=== PATIENT | female | born 1985 | race Caucasian/White ===

== ENCOUNTER 2018-01-09 19:14 | Emergency (ER) | payer OTHER ==
[2018-01-09 19:33] VITALS: TEMP 98.4
[2018-01-09] MEDS ORDERED: SODIUM CHLORIDE 0.9% 500 ML 500 ML IV ONE (20:03)
[2018-01-09 20:41] LABS: Basophils % (A) 0 %; Eosinophils # (A) 0.8 k/uL (0-0.7); Eosinophils % (A) 12 %; HCT 38.6 % (34.0-46.0); HGB 12.9 gm/dL (11.4-16.0); Lymphocytes % (A) 28 %; MCHC 33.4 g/dL (31.0-37.0); MCV 83.8 fL (80.0-100.0); Mean Platelet Volume 6.2; Monocytes # (A) 0.4 k/uL (0-1.0); Monocytes % (A) 6 %; Neutrophils # (A) 3.5 k/uL (1.3-7.7); Neutrophils % (A) 51 %; Platelet Count 334 k/uL (150-450); RBC 4.61 m/uL (3.80-5.40); RDW 13.6 % (11.5-15.5); WBC 6.9 k/uL (3.8-10.6)
[2018-01-09 20:54] LABS: ALT 20 U/L (9-52); AST 19 U/L (14-36); Albumin 2.6 g/dL (3.5-5.0); Alkaline Phosphatase 40 U/L (38-126); Anion Gap 4 mmol/L; Blood Urea Nitrogen 6 mg/dL (7-17); Calcium 8.4 mg/dL (8.4-10.2); Carbon Dioxide 29 mmol/L (22-30); Chloride 102 mmol/L (98-107); Glucose 109 mg/dL (74-99); Potassium 3.6 mmol/L (3.5-5.1); Sodium 135 mmol/L (137-145); Total Bilirubin 0.3 mg/dL (0.2-1.3)
[2018-01-09 20:56] LABS: Appearance,Urine Clear (Clear); Bilirubin,Urine Negative (Negative); Blood,Urine Small (Negative); Color,Urine Yellow; Glucose,Urine (UA) Negative (Negative); Ketones,Urine Negative (Negative); Leukocyte Esterase,Urine Small (Negative); Mucus,Urine Rare /hpf; Nitrite,Urine Negative (Negative); PH, Urine 6.5 (5.0-8.0); Protein,Urine Trace (Negative); RBC,Urine <1 /hpf (0-5); Squamous Epithelial Cell,Urine 7 /hpf (0-4); Urobilinogen,Urine <2.0 mg/dL (<2.0)
--- NOTE | 2018-01-09 21:33 | XR ---
EXAMINATION TYPE: XR chest 2V DATE OF EXAM: 01/09/2018 COMPARISON: Chest x-ray November 23, 2010. HISTORY: Productive cough. TECHNIQUE: Frontal and lateral views of the chest are obtained. FINDINGS: There are new patchy multifocal opacities are present bilaterally. No pleural effusion or pneumothorax is seen bilaterally. The cardiac silhouette size is within normal limits. The osseous structures are intact. IMPRESSION: Suspect multifocal multilobar acute infiltrates.
--- NOTE | 2018-01-09 22:06 | ED ---
General Adult HPI - General Chief complaint: Vaginal Bleeding Stated complaint: swelling hands/feet, pelvic pain Source: patient, RN notes reviewed, old records reviewed Mode of arrival: ambulatory Limitations: no limitations - History of Present Illness Initial comments: 32-year-old female patient presents to ED with multiple complaints. Patient states that she was diagnosed with pneumonia approximately 1 month ago. Patient states that she has improved after antibiotic therapy, patient states that she has been having productive cough exudates. Patient denies shortness of breath chest pain. Patient has second complaint of clear vaginal discharge. Patient states that approximately 2 weeks ago she had weakly positive tests, one week ago she had negative test, wants hCG checked again today. Patient has additional complaint of mild dysuria. Patient also reports that she had mild ankle swelling, like it looked at. Patient denies history of cardiac or kidney issues. Patient denies chest pain, shortness of breath, abdominal pain, nausea vomiting diarrhea, shortness of breath. Systemic: Pt denies fatigue, myalgia, fever/chills, rash. Pt denies weakness, night sweats, weight loss. Neuro: Pt denies headache, visual disturbances, syncope or pre-syncope. HEENT: Pt denies ocular discharge or irritation, otalgia, rhinorrhea, pharyngitis or notable lymphadenopathy. Cardiopulmonary: Pt denies chest pain, SOB, heart palpitations, dyspnea on exertion. Abdominal/GI: Pt denies abdominal pain, n/v/d. : Pt denies frequency/urgency. Denies new onset urinary or bowel incontinence. MSK: Pt denies myalgia, loss of strength or function in extremities. - Related Data Previous Rx's Medication Instructions Recorded Levofloxacin [Levaquin] 750 mg PO DAILY 5 Days #5 tab 01/09/18 Allergies Allergy/AdvReac Type Severity Reaction Status Date / Time No Known Allergies Allergy Verified 01/09/18 19:33 Review of Systems ROS Statement: Those systems with pertinent positive or pertinent negative responses have been documented in the HPI. ROS Other: All systems not noted in ROS Statement are negative. General Exam - General Exam Comments Initial Comments: Constitutional: NAD, AOX3, Pt has pleasant affect. HEENT: NC/AT, trachea midline, neck supple, no lymphadenopathy. Posterior pharynx non erythematous, without exudates. External ears appear normal, without discharge. Mucous membranes moist. Eyes PERRLA, EOM intact. There is no scleral icterus. No pallor noted. Cardiopulmonary: RRR, no murmurs, rubs or gallops, no JVD noted. Mild wheezing noted in anterior and posterior beck. No peripheral edema. Abdominal exam: Abdomen soft and non-distended. Abdomen non-tender to palpation in all 4 quadrants. Bowel sounds active in LLQ. No hepatosplenomegaly. Neuro: CN II-XII grossly intact. MSK: Tibialis posterior pulse +2 bilaterally. Ankles do not appear edematous, no pitting edema, no erythema, nontender to palpation. [employer] SALES ASSESSOR: pelvic exam performed, chaperogned by chet, cervix pink, no erythema or ulcers, no abnormal findings. Swabs taken. Limitations: no limitations Course Vital Signs 01/09/18 01/09/18 19:30 22:39 Temperature 98.4 F Pulse Rate 95 78 Respiratory 18 16 Rate Blood Pressure 143/81 129/82 O2 Sat by Pulse 96 100 Oximetry Medical Decision Making - Medical Decision Making 31-year-old female patient presents to ED with multiple complaints. These included concerns over possible , cough, vaginal discharge. Each of these were evaluated individually. Physical exam displayed mild wheezing in anterior and posterior beck. HEENT, abdominal exam was within normal limits. Pelvic exam revealed non-erythematous cervix, no discharge noted. Swabs are taken and are pending. CBC/CMP was non-impressive. UA did not display UTI. HCG was negative. A chest x-ray displayed new patchy infiltrates bilaterally. Patient given 1 g Rocephin in ED, discharged with by mouth levofloxacin. Patient to return to ED if new signs or symptoms develop including worsening cough, congestion, chest pain, shortness of breath, any other new symptoms. Patient to follow-up with PCP in 1-2 days. Case discussed with Dr. Washington. - Lab Data Result diagrams: 01/09/18 20:25 01/09/18 20:25 Lab Results 01/09/18 01/09/18 01/09/18 Range/Units 20:25 20:25 20:25 WBC 6.9 (3.8-10.6) k/uL RBC 4.61 (3.80-5.40) m/uL Hgb 12.9 (11.4-16.0) gm/dL Hct 38.6 (34.0-46.0) % MCV 83.8 (80.0-100.0) fL MCH 28.0 (25.0-35.0) pg MCHC 33.4 (31.0-37.0) g/dL RDW 13.6 (11.5-15.5) % Plt Count 334 (150-450) k/uL Neutrophils % 51 % Lymphocytes % 28 % Monocytes % 6 % Eosinophils % 12 % Basophils % 0 % Neutrophils # 3.5 (1.3-7.7) k/uL Lymphocytes # 2.0 (1.0-4.8) k/uL Monocytes # 0.4 (0-1.0) k/uL Eosinophils # 0.8 H (0-0.7) k/uL Basophils # 0.0 (0-0.2) k/uL Sodium 135 L (137-145) mmol/L Potassium 3.6 (3.5-5.1) mmol/L Chloride 102 (98-107) mmol/L Carbon Dioxide 29 (22-30) mmol/L Anion Gap 4 mmol/L BUN 6 L (7-17) mg/dL Creatinine 0.52 (0.52-1.04) mg/dL Est GFR (CKD-EPI)AfAm >90 (>60 ml/min/1.73 sqM) Est GFR (CKD-EPI)NonAf >90 (>60 ml/min/1.73 sqM) Glucose 109 H (74-99) mg/dL Calcium 8.4 (8.4-10.2) mg/dL Total Bilirubin 0.3 (0.2-1.3) mg/dL AST 19 (14-36) U/L ALT 20 (9-52) U/L Alkaline Phosphatase 40 (38-126) U/L Total Protein 5.0 L (6.3-8.2) g/dL Albumin 2.6 L (3.5-5.0) g/dL Urine Color Urine Appearance (Clear) Urine pH (5.0-8.0) Ur Specific [place] (1.001-1.035) Urine Protein (Negative) Urine Glucose (UA) (Negative) Urine Ketones (Negative) Urine Blood (Negative) Urine Nitrite (Negative) Urine Bilirubin (Negative) Urine Urobilinogen (<2.0) mg/dL Ur Leukocyte Esterase (Negative) Urine RBC (0-5) /hpf Urine WBC (0-5) /hpf Ur Squamous Epith Cells (0-4) /hpf Urine Mucus (None) /hpf Urine HCG, Qual Not Detected (Not Detectd) Trichomonas Ag (Rapid) (Negative) 01/09/18 01/09/18 Range/Units 20:25 21:03 WBC (3.8-10.6) k/uL RBC (3.80-5.40) m/uL Hgb (11.4-16.0) gm/dL Hct (34.0-46.0) % MCV (80.0-100.0) fL MCH (25.0-35.0) pg MCHC (31.0-37.0) g/dL RDW (11.5-15.5) % Plt Count (150-450) k/uL Neutrophils % % Lymphocytes % % Monocytes % % Eosinophils % % Basophils % % Neutrophils # (1.3-7.7) k/uL Lymphocytes # (1.0-4.8) k/uL Monocytes # (0-1.0) k/uL Eosinophils # (0-0.7) k/uL Basophils # (0-0.2) k/uL Sodium (137-145) mmol/L Potassium (3.5-5.1) mmol/L Chloride (98-107) mmol/L Carbon Dioxide (22-30) mmol/L Anion Gap mmol/L BUN (7-17) mg/dL Creatinine (0.52-1.04) mg/dL Est GFR (CKD-EPI)AfAm (>60 ml/min/1.73 sqM) Est GFR (CKD-EPI)NonAf (>60 ml/min/1.73 sqM) Glucose (74-99) mg/dL Calcium (8.4-10.2) mg/dL Total Bilirubin (0.2-1.3) mg/dL AST (14-36) U/L ALT (9-52) U/L Alkaline Phosphatase (38-126) U/L Total Protein (6.3-8.2) g/dL Albumin (3.5-5.0) g/dL Urine Color Yellow Urine Appearance Clear (Clear) Urine pH 6.5 (5.0-8.0) Ur Specific [place] 1.020 (1.001-1.035) Urine Protein Trace H (Negative) Urine Glucose (UA) Negative (Negative) Urine Ketones Negative (Negative) Urine Blood Small H (Negative) Urine Nitrite Negative (Negative) Urine Bilirubin Negative (Negative) Urine Urobilinogen <2.0 (<2.0) mg/dL Ur Leukocyte Esterase Small H (Negative) Urine RBC <1 (0-5) /hpf Urine WBC 1 (0-5) /hpf Ur Squamous Epith Cells 7 H (0-4) /hpf Urine Mucus Rare H (None) /hpf Urine HCG, Qual (Not Detectd) Trichomonas Ag (Rapid) Negative (Negative) Disposition Clinical Impression: Pneumonia Disposition: HOME SELF-CARE Condition: Good Instructions: Pneumonia (ED) Additional Instructions: Patient to adhere to previously discussed treatment plan and will take medication(s) as directed. Patient to follow up with PCP in 1-2 days. Patient to return to ED if symptoms do not improve. Isidro Medellin [employer] in [place], [place] Address: [address] [place] [address] Prescriptions: Levofloxacin [Levaquin] 750 mg PO DAILY 5 Days #5 tab Is patient prescribed a controlled substance at d/c from ED?: No Referrals: Ghassan Kaminski MD [Primary Care Provider] - 1-2 days Time of Disposition: 22:33
[2018-01-09] MEDS ORDERED: cefTRIAXone 1,000 MG VIAL (IM USE) IM STA (22:21)
[2018-01-09 22:40] VITALS: BP 129/82; PULSE 78; RESP 16
[2018-01-11 15:49] LABS: C. trachomatis,PCR Negative (Neg,Equiv); Chlamydia trachomatis Source Urine
[2018-01-11 15:51] LABS: N. gonorrhoeae,PCR Negative (Neg,Equiv); Neisseria Source Urine
== END 2018-01-09 22:40 | disposition home or self-care (01) ==
LOC: EC 19:14
DX: J18.9 Pneumonia, unspecified organism (principal)
CPT/HCPCS: 36415; 80053; 85025; 81001; 81025; 87808; 87491; 87591; 87070; 87205; 71046; 99284; 96360; 96372; J0696

== ENCOUNTER 2019-08-22 13:49 | Emergency (ER) | payer OTHER ==
[2019-08-22 13:54] VITALS: TEMP 98.4
--- NOTE | 2019-08-22 14:15 | ED ---
Extremity Problem HPI - General Chief complaint: Extremity Problem,Nontraumatic Stated complaint: Bilateral Legs Swelling Time Seen by Provider: 08/22/19 14:02 Source: patient Mode of arrival: ambulatory Limitations: no limitations - History of Present Illness Initial comments: Patient had 34-year-old female presenting to the emergency department with a chief complaint of leg swelling. Patient reports gradual onset of bilateral lower extremity edema over the last few days. Patient also reports decreasing urine ankles. Patient denies any trauma to the region. Patient states she has been running around over the last few days to prepare for her daughter's graduation. Patient states she continues to have pain with a relation. She denies any shortness of breath or chest pain. Patient states she is not diabetic nor has any cardiac related issues. Patient also reports a lesion on the right lower extremity with occasional clear discharge. Patient denies any night sweats or chills. - Related Data Home Medications Medication Instructions Recorded Confirmed Buprenorphine HCl/Naloxone HCl 0.5 film SL DAILY@1300 08/22/19 08/22/19 [Suboxone 8 mg-2 mg Sl Film] Buprenorphine HCl/Naloxone HCl 1 film SL DAILY 08/22/19 08/22/19 [Suboxone 8 mg-2 mg Sl Film] Loratadine 10 mg PO DAILY 08/22/19 08/22/19 OXcarbazepine [Trileptal] 600 mg PO BID 08/22/19 08/22/19 Sertraline [Zoloft] 100 mg PO BID 08/22/19 08/22/19 clonazePAM 0.5 mg PO BID 08/22/19 08/22/19 Allergies Allergy/AdvReac Type Severity Reaction Status Date / Time No Known Allergies Allergy Verified 08/22/19 15:22 Review of Systems ROS Statement: Those systems with pertinent positive or pertinent negative responses have been documented in the HPI. ROS Other: All systems not noted in ROS Statement are negative. Past Medical History Past Medical History: No Reported History History of Any Multi-Drug Resistant Organisms: None Reported Past Surgical History: Section Smoking Status: Current every day smoker Past Alcohol Use History: None Reported Past Drug Use History: Marijuana General Exam Limitations: no limitations General appearance: alert, in no apparent distress Head exam: Present: atraumatic, normocephalic, normal inspection Eye exam: Present: normal appearance, PERRL, EOMI Pupils: Present: normal accommodation ENT exam: Present: normal exam, normal oropharynx, mucous membranes moist, TM's normal bilaterally, normal external ear exam Neck exam: Present: normal inspection, full ROM. Absent: tenderness Respiratory exam: Present: normal lung sounds bilaterally. Absent: respiratory distress, wheezes Cardiovascular Exam: Present: regular rate, normal rhythm, normal heart sounds Extremities exam: Present: full ROM, tenderness (Tenderness near the high ankle region.), normal capillary refill, pedal edema (+2 pitting edema), joint swelling (Bilateral ankles), other (+2 dorsalis pedis and posterior tibialis bilaterally.). Absent: normal inspection (Bilateral lower extremity edema with no cellulitic skin changes in the right lower leg.), calf tenderness Course Vital Signs 08/22/19 08/22/19 08/22/19 13:51 14:12 14:44 Temperature 98.4 F Pulse Rate 73 89 73 Respiratory 16 18 Rate Blood Pressure 127/82 132/85 O2 Sat by Pulse 98 97 Oximetry 08/22/19 08/22/19 08/22/19 15:00 16:00 16:14 Temperature Pulse Rate 76 77 73 Respiratory 16 16 18 Rate Blood Pressure 132/85 132/85 128/88 O2 Sat by Pulse 97 97 97 Oximetry 08/22/19 08/22/19 08/22/19 17:00 18:33 18:36 Temperature 98.4 F Pulse Rate 78 90 90 Respiratory 16 18 18 Rate Blood Pressure 123/77 113/72 113/72 O2 Sat by Pulse 97 96 96 Oximetry Medical Decision Making - Medical Decision Making Patient is a 34-year-old female presenting to emergency Department with a chief complaint of leg swelling. On exam no signs of overlying cellulitic skin changes. Patient was also evaluated by . he recommended additional testing. Chest x-ray is unremarkable, bilateral lower extremity Doppler ultrasound is unremarkable for DVT. She does have right popliteal cyst. CT abdomen and pelvis shows mild patchy infiltrates in the right lateral lung base. Patient has slight decrease in renal function with BUN of 6 and creatinine of 0.49. Patient advised to follow with . Return parameters were thoroughly discussed the patient was understanding and agreeable. Case discussed with physician. - Lab Data Result diagrams: 08/22/19 14:44 08/22/19 14:44 Lab Results 0708/22/19 08/22/19 Range/Units 14:44 14:44 14:44 WBC 6.4 (3.8-10.6) k/uL RBC 4.74 (3.80-5.40) m/uL Hgb 13.4 (11.4-16.0) gm/dL Hct 41.1 (34.0-46.0) % MCV 86.8 (80.0-100.0) fL MCH 28.2 (25.0-35.0) pg MCHC 32.5 (31.0-37.0) g/dL RDW 12.6 (11.5-15.5) % Plt Count 269 (150-450) k/uL Neutrophils % 61 % Lymphocytes % 22 % Monocytes % 8 % Eosinophils % 6 % Basophils % 0 % Neutrophils # 3.9 (1.3-7.7) k/uL Lymphocytes # 1.4 (1.0-4.8) k/uL Monocytes # 0.5 (0-1.0) k/uL Eosinophils # 0.4 (0-0.7) k/uL Basophils # 0.0 (0-0.2) k/uL Sodium 130 L (137-145) mmol/L Potassium 4.2 (3.5-5.1) mmol/L Chloride 95 L (98-107) mmol/L Carbon Dioxide 29 (22-30) mmol/L Anion Gap 6 mmol/L BUN 6 L (7-17) mg/dL Creatinine 0.49 L (0.52-1.04) mg/dL Est GFR (CKD-EPI)AfAm >90 (>60 ml/min/1.73 sqM) Est GFR (CKD-EPI)NonAf >90 (>60 ml/min/1.73 sqM) Glucose 106 H (74-99) mg/dL Calcium 8.8 (8.4-10.2) mg/dL Total Bilirubin 0.5 (0.2-1.3) mg/dL AST 29 (14-36) U/L ALT 11 (4-34) U/L Alkaline Phosphatase 44 (38-126) U/L NT-Pro-B Natriuret Pep 25 pg/mL Total Protein 6.1 L (6.3-8.2) g/dL Albumin 3.6 (3.5-5.0) g/dL Urine Color Urine Appearance (Clear) Urine pH (5.0-8.0) Ur Specific [place] (1.001-1.035) Urine Protein (Negative) Urine Glucose (UA) (Negative) Urine Ketones (Negative) Urine Blood (Negative) Urine Nitrite (Negative) Urine Bilirubin (Negative) Urine Urobilinogen (<2.0) mg/dL Ur Leukocyte Esterase (Negative) Urine HCG, Qual (Not Detectd) 08/22/19 08/22/19 Range/Units 16:14 16:14 WBC (3.8-10.6) k/uL RBC (3.80-5.40) m/uL Hgb (11.4-16.0) gm/dL Hct (34.0-46.0) % MCV (80.0-100.0) fL MCH (25.0-35.0) pg MCHC (31.0-37.0) g/dL RDW (11.5-15.5) % Plt Count (150-450) k/uL Neutrophils % % Lymphocytes % % Monocytes % % Eosinophils % % Basophils % % Neutrophils # (1.3-7.7) k/uL Lymphocytes # (1.0-4.8) k/uL Monocytes # (0-1.0) k/uL Eosinophils # (0-0.7) k/uL Basophils # (0-0.2) k/uL Sodium (137-145) mmol/L Potassium (3.5-5.1) mmol/L Chloride (98-107) mmol/L Carbon Dioxide (22-30) mmol/L Anion Gap mmol/L BUN (7-17) mg/dL Creatinine (0.52-1.04) mg/dL Est GFR (CKD-EPI)AfAm (>60 ml/min/1.73 sqM) Est GFR (CKD-EPI)NonAf (>60 ml/min/1.73 sqM) Glucose (74-99) mg/dL Calcium (8.4-10.2) mg/dL Total Bilirubin (0.2-1.3) mg/dL AST (14-36) U/L ALT (4-34) U/L Alkaline Phosphatase (38-126) U/L NT-Pro-B Natriuret Pep pg/mL Total Protein (6.3-8.2) g/dL Albumin (3.5-5.0) g/dL Urine Color Light Yellow Urine Appearance Clear (Clear) Urine pH 7.0 (5.0-8.0) Ur Specific [place] 1.002 (1.001-1.035) Urine Protein Negative (Negative) Urine Glucose (UA) Negative (Negative) Urine Ketones Negative (Negative) Urine Blood Negative (Negative) Urine Nitrite Negative (Negative) Urine Bilirubin Negative (Negative) Urine Urobilinogen <2.0 (<2.0) mg/dL Ur Leukocyte Esterase Negative (Negative) Urine HCG, Qual Not Detected (Not Detectd) - EKG Data EKG Comments: Sinus rhythm, no ST or T-wave changes. Ventricular rate 73, MO 142, QRS 96, QTC 434. Disposition Clinical Impression: Bilateral lower extremity edema Disposition: HOME SELF-CARE Condition: Stable Instructions (If sedation given, give patient instructions): Leg Edema (ED) Additional Instructions: elevate your legs and rest. follow up with your PCP. return to the Emergency department is symptoms worsen. Follow-up with pulmonology. Is patient prescribed a controlled substance at d/c from ED?: No Referrals: None,Stated [Primary Care Provider] - 1-2 days Beulah Olivo MD [STAFF PHYSICIAN] - 1-2 days Time of Disposition: 15:48
--- NOTE | 2019-08-22 14:41 | XR ---
EXAMINATION TYPE: XR chest 2V DATE OF EXAM: 08/22/2019 COMPARISON: 01/09/2018 HISTORY: Chest pain TECHNIQUE: Frontal and lateral views of the chest are obtained. FINDINGS: There is no focal air space opacity. No evidence for pneumothorax. No pleural effusion. The cardiac silhouette size is within normal limits. The osseous structures are grossly intact. IMPRESSION: 1. No acute cardiopulmonary process.
[2019-08-22 14:55] LABS: Basophils % (A) 0 %; Eosinophils # (A) 0.4 k/uL (0-0.7); Eosinophils % (A) 6 %; HCT 41.1 % (34.0-46.0); HGB 13.4 gm/dL (11.4-16.0); Lymphocytes # (A) 1.4 k/uL (1.0-4.8); Lymphocytes % (A) 22 %; MCH 28.2 pg (25.0-35.0); MCHC 32.5 g/dL (31.0-37.0); MCV 86.8 fL (80.0-100.0); Mean Platelet Volume 7.2; Monocytes # (A) 0.5 k/uL (0-1.0); Monocytes % (A) 8 %; Neutrophils # (A) 3.9 k/uL (1.3-7.7); Neutrophils % (A) 61 %; Platelet Count 269 k/uL (150-450); RBC 4.74 m/uL (3.80-5.40); RDW 12.6 % (11.5-15.5); WBC 6.4 k/uL (3.8-10.6)
[2019-08-22 15:02] LABS: ALT 11 U/L (4-34); AST 29 U/L (14-36); African American GFR (CKD) >90 (>60 ml/min/1.73 sqM); Albumin 3.6 g/dL (3.5-5.0); Alkaline Phosphatase 44 U/L (38-126); Anion Gap 6 mmol/L; Blood Urea Nitrogen 6 mg/dL (7-17); Calcium 8.8 mg/dL (8.4-10.2); Carbon Dioxide 29 mmol/L (22-30); Chloride 95 mmol/L (98-107); Glucose 106 mg/dL (74-99); Non-African American GFR(CKD) >90 (>60 ml/min/1.73 sqM); Sodium 130 mmol/L (137-145); Total Bilirubin 0.5 mg/dL (0.2-1.3); Total Protein 6.1 g/dL (6.3-8.2)
[2019-08-22 15:11] LABS: Potassium 4.2 mmol/L (3.5-5.1)
[2019-08-22 16:23] LABS: Appearance,Urine Clear (Clear); Bilirubin,Urine Negative (Negative); Blood,Urine Negative (Negative); Color,Urine Light Yellow; Glucose,Urine (UA) Negative (Negative); Ketones,Urine Negative (Negative); Leukocyte Esterase,Urine Negative (Negative); Nitrite,Urine Negative (Negative); Protein,Urine Negative (Negative); Specific Gravity,Urine 1.002 (1.001-1.035); Urobilinogen,Urine <2.0 mg/dL (<2.0)
--- NOTE | 2019-08-22 17:14 | US ---
EXAMINATION TYPE: US venous doppler duplex LE DATE OF EXAM: 08/22/2019 5:02 PM COMPARISON: NONE CLINICAL HISTORY: lower extremity edema. SIDE PERFORMED: Bilateral TECHNIQUE: The lower extremity deep venous system is examined utilizing real time linear array sonog seda with graded compression, doppler sonography and color-flow sonography. VESSELS IMAGED: External Iliac Vein (EIV) Common Femoral Vein Deep Femoral Vein Greater Saphenous Vein * Femoral Vein Popliteal Vein Small Saphenous Vein * Proximal Calf Veins (* superficial vessels) Patient of large body habitus. Right Leg: Negative for DVT Left Leg: Negative for DVT Within the right popliteal fossa there is a heterogenous 7.2 x 1.5 cm complex collection could be pop liteal cyst. IMPRESSION: 1. Bilateral lower extremity ultrasound negative for deep venous thrombosis. 2. Right popliteal cyst
--- NOTE | 2019-08-22 17:52 | CT ---
EXAMINATION TYPE: CT abdomen pelvis w con DATE OF EXAM: 08/22/2019 COMPARISON: None INDICATION: Bilateral leg edema DLP: 1306.4 mGycm, Automated exposure control for dose reduction was used. CONTRAST: 100 mL of Isovue 300. Study performed without Oral Contrast TECHNIQUE: Axial images were obtained from above the diaphragm to the pubic rami in the axial plane a t 5 mm thick sections. Reconstructed images are reviewed on the computer in the coronal plane. FINDINGS: Limited CT sections are obtained the lung bases. There is a patchy infiltrate at the right base. Ate lectasis is within the differential. An infiltrate such as pneumonia could be considered as etiologie s are not excluded.. CT ABDOMEN: Liver: Normal Spleen: Normal Pancreas: Normal Adrenal glands: The adrenal glands are normal. Gallbladder: Normal Kidneys: No masses are evident. No hydronephrosis is present. There is a cyst at the superior pole lateral aspect left kidney Delayed images were obtained through the kidneys, which remain unremarkab le. Aorta: Normal Inferior vena cava: Normal. CT PELVIS: Loops of bowel within the abdomen and pelvis are normal. Study is without oral contrast limiting bowel evaluation. Appendix: Not identified. No suspicious inflammatory changes or dilated tubular structures are eviden t Urinary bladder: Normal. Genitourinary structures: Osseous structures: Uterus and adnexal regions appear unremarkable IMPRESSIONS: 1. Mild patchy infiltrate right lateral lung base most likely atelectasis. Other etiologies are not excluded 2. No suspicious masses to account for leg swelling
[2019-08-22] MEDS ORDERED: FUROSEMIDE 10 MG/ML 2 ML VIAL IV STA (18:24)
[2019-08-22 18:35] VITALS: BP 113/72; PULSE 90; RESP 18
== END 2019-08-22 18:47 | disposition home or self-care (01) ==
LOC: EC 13:49
DX: R60.0 Localized edema (principal); M71.21 Synovial cyst of popliteal space [Baker], right knee; R91.8 Other nonspecific abnormal finding of lung field; R79.89 Other specified abnormal findings of blood chemistry; M79.605 Pain in left leg; M79.604 Pain in right leg; F17.200 Nicotine dependence, unspecified, uncomplicated
CPT/HCPCS: 36415; 93005; 83880; 80053; 85025; 81003; 81025; 71046; 93970; 74177; 96374; 99284; J1940; Q9967

== ENCOUNTER → 2019-10-28 | Outpatient (CLI) | payer OTHER | END | disposition home or self-care (01) | LOC: LABWHC1 09:37 | PROVIDERS: ATTEND Emergency Medicine | DX: Z20.828 Contact with and (suspected) exposure to other viral communicable diseases (principal) | CPT/HCPCS: U0003; C9803 ==

== ENCOUNTER 2019-11-20 12:22 | Observation (INO) | payer OTHER ==
[2019-11-20] MEDS ORDERED: methylPREDNISolone SOD SUCCI 125 MG/2 ML VIAL IV STA (12:34)
[2019-11-20] MEDS ORDERED: ALBUTEROL NEBULIZED (CONC) 5 MG, SODIUM CHLORIDE 0.9% NEBULIZ 3 ML INHALATION STA ×2 (12:34)
[2019-11-20] MEDS ORDERED: IPRATROPIUM-ALBUTEROL 3 ML NEB INHALATION STA (13:35)
--- NOTE | 2019-11-20 14:04 | XR ---
EXAMINATION TYPE: XR chest 2V DATE OF EXAM: 11/20/2019 COMPARISON: 08/22/2019 INDICATION: Cough weakness TECHNIQUE: Frontal and lateral views of the chest are obtained. FINDINGS: The heart size is normal. The pulmonary vasculature is normal. The lungs are clear. IMPRESSION: 1. No acute pulmonary process.
[2019-11-20 14:21] LABS: Basophils # (A) 0.1 k/uL (0-0.2); Basophils % (A) 1 %; Eosinophils # (A) 0.3 k/uL (0-0.7); Eosinophils % (A) 3 %; HCT 47.7 % (34.0-46.0); HGB 15.3 gm/dL (11.4-16.0); Lymphocytes # (A) 1.2 k/uL (1.0-4.8); Lymphocytes % (A) 13 %; MCH 26.7 pg (25.0-35.0); MCV 83.4 fL (80.0-100.0); Monocytes # (A) 0.7 k/uL (0-1.0); Monocytes % (A) 7 %; Neutrophils # (A) 6.4 k/uL (1.3-7.7); Neutrophils % (A) 73 %; Platelet Count 279 k/uL (150-450); RBC 5.72 m/uL (3.80-5.40); RDW 13.3 % (11.5-15.5); WBC 8.7 k/uL (3.8-10.6)
[2019-11-20] MEDS ORDERED: NALOXONE 0.4 MG/ML 1 ML VIAL IV PRN (14:30)
[2019-11-20 14:31] LABS: ALT 9 U/L (4-34); AST 21 U/L (14-36); African American GFR (CKD) >90 (>60 ml/min/1.73 sqM); Albumin 4.1 g/dL (3.5-5.0); Alkaline Phosphatase 56 U/L (38-126); Anion Gap 7 mmol/L; Blood Urea Nitrogen 14 mg/dL (7-17); Calcium 9.4 mg/dL (8.4-10.2); Carbon Dioxide 29 mmol/L (22-30); Chloride 101 mmol/L (98-107); Glucose 115 mg/dL (74-99); Non-African American GFR(CKD) >90 (>60 ml/min/1.73 sqM); Potassium 4.1 mmol/L (3.5-5.1); Sodium 137 mmol/L (137-145); Total Bilirubin 0.6 mg/dL (0.2-1.3); Total Protein 7.3 g/dL (6.3-8.2)
[2019-11-20] MEDS ORDERED: MAGNESIUM SULFATE-D5W PMX 1 GM in DEXTROSE/WATER 1 100ML.BAG IVPB ONE (14:32)
[2019-11-20 14:35] LABS: Appearance,Urine Clear (Clear); Bilirubin,Urine Negative (Negative); Blood,Urine Negative (Negative); Color,Urine Yellow; Glucose,Urine (UA) Negative (Negative); Ketones,Urine 3+ (Negative); Leukocyte Esterase,Urine Moderate (Negative); Mucus,Urine Few /hpf; Nitrite,Urine Negative (Negative); PH, Urine 6.5 (5.0-8.0); Protein,Urine Negative (Negative); RBC,Urine 1 /hpf (0-5); Specific Gravity,Urine 1.023 (1.001-1.035); Squamous Epithelial Cell,Urine 4 /hpf (0-4); WBC,Urine 3 /hpf (0-5)
[2019-11-20] MEDS ORDERED: IPRATROPIUM-ALBUTEROL 3 ML NEB INHALATION PRN (14:35)
--- NOTE | 2019-11-20 14:35 | ED ---
URI HPI - General Chief Complaint: Upper Respiratory Infection Stated Complaint: cough, congestion, SOB Time Seen by Provider: 11/20/19 12:27 Source: patient Mode of arrival: ambulatory Limitations: no limitations - History of Present Illness Initial Comments: 34-year-old female presenting for cough congestion shortness of breath. Patient states she's had wheezing and shortness of breath the past 2-3 days she states she's had a cough or sputum production she states it is green. Patient states she had asthma as a kid and when she gets sick as a dull and occasionally flares up. Patient believes she is having an asthma exacerbation she states she has not. Albuterol inhaler at this time. Patient denies any history of immune compromise. She appears well and nontoxic she is slightly tachypneic on arrival with a lower oxygen saturation than normal. Patient denies any leg swelling chest pain. Deep inspiration history DVT to pulmonary embolism. She denies IVDU or additional complaints or concerns. - Related Data Home Medications Medication Instructions Recorded Confirmed No Known Home Medications 11/20/19 11/20/19 Allergies Allergy/AdvReac Type Severity Reaction Status Date / Time No Known Allergies Allergy Verified 11/20/19 13:39 Review of Systems ROS Statement: Those systems with pertinent positive or pertinent negative responses have been documented in the HPI. ROS Other: All systems not noted in ROS Statement are negative. Past Medical History Past Medical History: No Reported History History of Any Multi-Drug Resistant Organisms: None Reported Past Surgical History: Section Smoking Status: Never smoker Past Alcohol Use History: None Reported Past Drug Use History: Marijuana General Exam - General Exam Comments Initial Comments: General: The patient is awake and alert, can speak complete sentences Eye: +3 mm pupils are equal, round and reactive to light, extra-ocular movements are intact. No nystagmus. There is normal conjunctiva bilaterally. No signs of icterus. Ears, nose, mouth and throat: There are moist mucous membranes and no oral lesions. Neck: The neck is supple, there is no tenderness or JVD. Cardiovascular: There is a regular rate and rhythm. No murmur, rub or gallop is appreciated. Respiratory: Respirations are mildly-labored with no retractions, or abdominal breathing, breath sounds are equal. INspiratory and expiratory wheeze throughout lung beck. No stridor, rales, or rhonchi. Gastrointestinal: Soft, non-distended, non-tender abdomen without masses or organomegaly noted. There is no rebound or guarding present Musculoskeletal: Normal ROM, no tenderness. Strength 5/5. Sensation intact. Pulses equal bilaterally 2+. Neurological: A&O x 3. CN II-XII intact grossly, There are no obvious motor or sensory deficits. Coordination appears grossly intact. Speech is normal. Skin: Skin is warm and dry and no rashes or lesions are noted. Psychiatric: Cooperative, appropriate mood & affect, normal judgment. Limitations: no limitations Course Vital Signs 11/20/19 11/20/19 11/20/19 12:24 13:08 13:20 Temperature 99.4 F Pulse Rate 109 H 100 100 Respiratory 24 Rate Blood Pressure 149/90 O2 Sat by Pulse 93 L Oximetry 11/20/19 11/20/19 14:12 14:24 Temperature Pulse Rate 96 96 Respiratory Rate Blood Pressure O2 Sat by Pulse Oximetry Medical Decision Making - Medical Decision Making Labs stable. CXR clear .obvious broncospams on exam. hx of asthma. after 5mg albuterol (double treatment) and a duoneb patient has very minimal improvement of lung sounds, she does however appears less tachypnea. Patient was given Solu-Medrol and will be admitted for further treatments. IV magnesium, and monitoring. Patient is agreeable to care plan as well as admission. There is no spotting suggestive of infection on chest x-ray telemetry studies - Lab Data Result diagrams: 11/20/19 13:16 11/20/19 13:16 Lab Results 11/20/19 11/20/19 11/20/19 Range/Units 13:16 13:16 13:16 WBC 8.7 (3.8-10.6) k/uL RBC 5.72 H (3.80-5.40) m/uL Hgb 15.3 (11.4-16.0) gm/dL Hct 47.7 H (34.0-46.0) % MCV 83.4 (80.0-100.0) fL MCH 26.7 (25.0-35.0) pg MCHC 32.0 (31.0-37.0) g/dL RDW 13.3 (11.5-15.5) % Plt Count 279 (150-450) k/uL Neutrophils % 73 % Lymphocytes % 13 % Monocytes % 7 % Eosinophils % 3 % Basophils % 1 % Neutrophils # 6.4 (1.3-7.7) k/uL Lymphocytes # 1.2 (1.0-4.8) k/uL Monocytes # 0.7 (0-1.0) k/uL Eosinophils # 0.3 (0-0.7) k/uL Basophils # 0.1 (0-0.2) k/uL Sodium 137 (137-145) mmol/L Potassium 4.1 (3.5-5.1) mmol/L Chloride 101 (98-107) mmol/L Carbon Dioxide 29 (22-30) mmol/L Anion Gap 7 mmol/L BUN 14 (7-17) mg/dL Creatinine 0.59 (0.52-1.04) mg/dL Est GFR (CKD-EPI)AfAm >90 (>60 ml/min/1.73 sqM) Est GFR (CKD-EPI)NonAf >90 (>60 ml/min/1.73 sqM) Glucose 115 H (74-99) mg/dL Plasma Lactic Acid Willie 1.8 (0.7-2.0) mmol/L Calcium 9.4 (8.4-10.2) mg/dL Total Bilirubin 0.6 (0.2-1.3) mg/dL AST 21 (14-36) U/L ALT 9 (4-34) U/L Alkaline Phosphatase 56 (38-126) U/L Total Protein 7.3 (6.3-8.2) g/dL Albumin 4.1 (3.5-5.0) g/dL Disposition Clinical Impression: Asthma exacerbation Disposition: ADMITTED IP TO THIS [facility] Condition: Stable Is patient prescribed a controlled substance at d/c from ED?: No Referrals: None,Stated [Primary Care Provider] - 1-2 days Time of Disposition: 14:35 Decision to Admit Reason: Admit from EC Decision Date: 11/20/19 Decision Time: 14:35
[2019-11-20] MEDS: IPRATROPIUM-ALBUTEROL 3 ML NEB INHALATION SCH ×2 (15:55→19:37)
[2019-11-20] MEDS ORDERED: TEMAZEPAM 15 MG CAP PO PRN (16:01)
[2019-11-20] MEDS: BUDESONIDE 1 MG/2 ML NEBU INHALATION SCH ×2 (16:04→19:37)
[2019-11-20] MEDS: FORMOTEROL FUMARATE 20 MCG/2 ML NEBU INHALATION SCH ×2 (16:04→19:37)
[2019-11-20] MEDS: methylPREDNISolone SOD SUCCI 125 MG/2 ML VIAL IV SCH ×3 (16:29→23:47)
[2019-11-20] MEDS: ALPRAZolam 0.25 MG TAB PO PRN ×2 (16:37→21:03)
[2019-11-20] MEDS ORDERED: MORPHINE SULFATE 2 MG/ML SYRINGE IVP PRN (16:51)
--- NOTE | 2019-11-20 17:00 | HP ---
HISTORY AND PHYSICAL DATE OF SERVICE: 11/20/2019 CHIEF COMPLAINTS: Shortness of breath. HISTORY OF PRESENT ILLNESS: This 34-year-old woman with a past medical history of multiple medical problems including history of asthma, history of section, history of THC being followed by Dr. Schneider in the outpatient setting, was complaining of increased shortness of breath. The patient was apparently on Suboxone, but apparently the patient took fentanyl and got kicked out of the program by Dr. Schneider. The patient is not taking inhalers at this time. The patient had asthma since the age of 3. Currently patient has extreme wheezing and shortness of breath and difficulty breathing. The patient came to [facility] and was admitted for further evaluation and treatment. There is no history of fever, rigors, chills. No history of headache, loss of consciousness, seizures. Initial evaluation showed WBC 8.7. UA was noted. The chest x- ray which was reviewed personally by me during the during the admission showed no acute pulmonary process. There is no history of fever, rigors, chills. No headache, loss of consciousness, seizures. PAST MEDICAL HISTORY: History of section. History of THC. MEDICATIONS: Home medications are none. ALLERGIES: None. FAMILY HISTORY: No history of heart disease or strokes in the family. SOCIAL HISTORY: History of THC. No history of smoking. REVIEW OF SYSTEMS: ENT: No diminished vision or hearing. CARDIOVASCULAR: No angina. RESPIRATORY: As mentioned earlier. GI: As mentioned earlier. : No dysuria. NERVOUS SYSTEM: No numbness or weakness. ALLERGY/IMMUNOLOGY: No asthma or hayfever. MUSCULOSKELETAL: As mentioned earlier. HEMATOLOGY: No history of anemia. ENDOCRINE: No history of diabetes or hypothyroidism. CONSTITUTIONAL: As mentioned earlier. DERMATOLOGY: Negative. RHEUMATOLOGY: Negative. PSYCHIATRY: As mentioned earlier. PHYSICAL EXAMINATION: GENERAL: Patient is alert and oriented times three. VITAL SIGNS: Pulse 112, blood pressure 130/88, respirations 19, temperature 98.2, pulse ox 92% on 2 liters. HEENT: Conjunctivae normal. Oral mucosa is moist. NECK: No jugular venous distention. No carotid bruits. No lymph node enlargement. RESPIRATORY: Breath sounds diminished at the bases. Bilateral scattered rhonchi and crackles. Expiratory wheezing also present. HEART: S1 and S2, muffled. ABDOMEN: Soft, no tenderness. No masses palpable. EXTREMITIES: No edema, no swelling. NERVOUS: Higher functions as mentioned earlier. Moves all four limbs. No focal motor or sensory deficits. LYMPHATICS: No lymph nodes palpable in the neck or axillae. SKIN: No rashes. JOINTS: No active deforming arthropathy. LABS: At this time shows WBC 8.2, hemoglobin 15.2, glucose 115. ASSESSMENT: 1. Acute bronchial asthma acute exacerbation with acute purulent tracheobronchitis. 2. Chronic intermittent Bronchial asthma at baseline. 4. Increased random blood sugar. 5. History of THC. 6. History of section. 7. FULL CODE. RECOMMENDATIONS AND DISCUSSION: This is a 34-year-old woman who presented with multiple complex medical issues, we will monitor the patient closely. Continue the current medications and continue with symptomatic treatment. Will initiate broad-spectrum antibiotics, steroids, bronchodilators, pulmonary consultation. Prognosis guarded because of multiple complex medical issues. Further recommendations to follow. MMODL / IJN: [id number] / MTDD
[2019-11-20 17:23] LABS: Glucose,Whole Blood 163 mg/dL (75-99)
[2019-11-20] MEDS: INSULIN ASPART (NovoLOG) 100 UNIT/ML VIAL SQ SCH ×2 (17:33→21:04)
[2019-11-20] MEDS: AZITHROMYCIN 500 MG TAB PO SCH (17:33)
[2019-11-20] MEDS: HYDROcodone/APAP 5-325MG 1 EACH TAB PO PRN ×2 (17:33→23:46)
[2019-11-20 20:59] LABS: Glucose,Whole Blood 192 mg/dL (75-99)
[2019-11-20] MEDS: HEPARIN SODIUM,PORCINE 5,000 UNIT/ML 1 ML VIAL SQ SCH (21:03)
[2019-11-21] MEDS: methylPREDNISolone SOD SUCCI 125 MG/2 ML VIAL IV SCH ×3 (05:30→17:12)
[2019-11-21] MEDS: ALPRAZolam 0.25 MG TAB PO PRN ×2 (05:30→16:52)
[2019-11-21] MEDS: HYDROcodone/APAP 5-325MG 1 EACH TAB PO PRN ×3 (05:30→18:39)
[2019-11-21 06:37] LABS: Glucose,Whole Blood 157 mg/dL (75-99)
[2019-11-21] MEDS: IPRATROPIUM-ALBUTEROL 3 ML NEB INHALATION SCH ×4 (07:42→19:40)
[2019-11-21] MEDS: BUDESONIDE 1 MG/2 ML NEBU INHALATION SCH ×2 (07:42→19:40)
[2019-11-21] MEDS: FORMOTEROL FUMARATE 20 MCG/2 ML NEBU INHALATION SCH ×2 (07:42→19:40)
[2019-11-21] MEDS: PANTOPRAZOLE 40 MG TABLET PO SCH (08:15)
[2019-11-21] MEDS: HEPARIN SODIUM,PORCINE 5,000 UNIT/ML 1 ML VIAL SQ SCH ×2 (08:15→21:13)
[2019-11-21] MEDS: INSULIN ASPART (NovoLOG) 100 UNIT/ML VIAL SQ SCH ×4 (08:15→21:12)
[2019-11-21] MEDS: AZITHROMYCIN 500 MG TAB PO SCH (08:15)
[2019-11-21] MEDS ORDERED: predniSONE 20 MG TAB PO SCH (09:00)
[2019-11-21 09:20] LABS: Basophils % (A) 0 %; Eosinophils % (A) 0 %; HGB 14.4 gm/dL (11.4-16.0); Lymphocytes # (A) 0.9 k/uL (1.0-4.8); Lymphocytes % (A) 7 %; MCH 27.5 pg (25.0-35.0); MCHC 32.6 g/dL (31.0-37.0); MCV 84.4 fL (80.0-100.0); Mean Platelet Volume 6.9; Monocytes # (A) 0.3 k/uL (0-1.0); Monocytes % (A) 2 %; Neutrophils # (A) 12.7 k/uL (1.3-7.7); Neutrophils % (A) 91 %; Platelet Count 286 k/uL (150-450); RBC 5.21 m/uL (3.80-5.40); RDW 13.6 % (11.5-15.5)
[2019-11-21 09:28] LABS: African American GFR (CKD) >90 (>60 ml/min/1.73 sqM); Anion Gap 9 mmol/L; Blood Urea Nitrogen 17 mg/dL (7-17); Calcium 9.5 mg/dL (8.4-10.2); Carbon Dioxide 28 mmol/L (22-30); Chloride 100 mmol/L (98-107); Glucose 255 mg/dL (74-99); Non-African American GFR(CKD) >90 (>60 ml/min/1.73 sqM); Potassium 3.8 mmol/L (3.5-5.1); Sodium 137 mmol/L (137-145)
[2019-11-21 11:22] LABS: Glucose,Whole Blood 133 mg/dL (75-99)
--- NOTE | 2019-11-21 13:18 | P.CNPUL ---
History of Present Illness Consult date: 11/20/19 Reason for consult: dyspnea, asthma History of present illness: A 34-year-old female patient, presented to the ED yesterday because of worsening shortness of breath. The patient has issues with chronic narcotic medication dependence and the patient apparently has been maintained on Suboxone. She was released from the program as the patient was identified to take fentanyl and she is currently off the treatment. She is known to have bronchial asthma since childhood. Not utilizing any form of respiratory medications on inhalers at this point in time. She presented to the ED with worsening shortness of breath. She had been having. Dyspnea wheezing for the past 2-3 days and she also admitted to have increased cough and sputum production that was yellowish to green in color. She denied having any pleurisy. No previous history of DVT or pulmonary embolism. Denied using IV drugs. Her white cell count was 8.7. Rest of the blood work was all within normal limits. UA was negative. Chest x-ray in the ED showed no acute abnormalities. She is currently on 2 L about 2 by nasal cannula with a pulse ox of 92%. She is afebrile. A call the testing that was done on outpatient basis on 10/28/2019 was negative. The patient was also in the ED on 08/22/2019 where she was having issues with some swelling in the lower extremities. Chest x-ray were exam was unremarkable. Doppler of the lower oximetry was negative. CAT scan of the abdomen and pelvis was done that showed some mild patchy infiltrate in the right lung base and the patient was discharged home. Review of Systems Constitutional: Denies chills, Denies fever Eyes: denies as per HPI, denies blurred vision, denies bulging eye, denies decreased vision, denies diplopia, denies discharge, denies dry eye, denies irritation, denies itching, denies pain, denies photophobia, denies loss of peripheral vision, denies loss of vision, denies tunnel vision/blind spots Ears: deny: decreased hearing, ear discharge, earache, tinnitus Ears, nose, mouth and throat: Reports as per HPI Breasts: absent: as per HPI, change in shape, gynecomastia, masses, nipple discharge, pain, skin changes, swelling Cardiovascular: Reports decreased exercise tolerance, Reports dyspnea on exertion Respiratory: Reports cough, Reports cough with sputum, Reports dyspnea, Reports wheezing Gastrointestinal: Reports as per HPI Genitourinary: Reports as per HPI Menstruation: Reports as per HPI Musculoskeletal: Reports as per HPI Musculoskeletal: absent: ankle pain, ankle stiffness, ankle swelling Integumentary: Reports as per HPI Neurological: Reports as per HPI Psychiatric: Reports as per HPI Endocrine: Reports as per HPI Hematologic/Lymphatic: Reports as per HPI Allergic/Immunologic: Reports as per HPI Past Medical History Past Medical History: Asthma, Fibromyalgia History of Any Multi-Drug Resistant Organisms: None Reported Past Surgical History: Section Past Anesthesia/Blood Transfusion Reactions: No Reported Reaction Past Psychological History: Anxiety, Depression Smoking Status: Current every day smoker Past Alcohol Use History: None Reported Past Drug Use History: Marijuana - Past Family History Mother Family Medical History: Hypertension Additional Family Medical History / Comment(s): colitis Father Additional Family Medical History / Comment(s): anxiety and depression Sister(s) Family Medical History: Diabetes Mellitus, Myocardial Infarction (ND) Medications and Allergies Home Medications Medication Instructions Recorded Confirmed Type No Known Home Medications 11/20/19 11/20/19 History Allergies Allergy/AdvReac Type Severity Reaction Status Date / Time No Known Allergies Allergy Verified 11/20/19 13:39 Physical Exam Vitals: Vital Signs Temp Pulse Pulse Resp BP BP Pulse Ox 11/20/19 16:03 112 H 11/20/19 15:56 112 H 11/20/19 15:36 98.2 F 112 H 18 130/77 92 L 11/20/19 14:41 113 H 19 138/85 93 L 11/20/19 14:24 96 11/20/19 14:12 96 11/20/19 13:20 100 11/20/19 13:08 100 11/20/19 12:24 99.4 F 109 H 24 149/90 93 L Intake and Output 11/20/19 11/20/19 11/20/19 06:59 14:59 22:59 Other: Voiding Method Toilet Weight 83.915 kg 83.915 kg The patient appeared well nourished and normally developed. Vital signs as documented. Head exam is unremarkable. No scleral icterus or corneal arcus noted. Neck is without jugular venous distension, thyromegaly, or carotid bruits. Carotid upstrokes are brisk bilaterally. Lungs are diminished breath sounds and diffuse expiratory wheezes throughout the lung beck bilaterally. Currently on 2 L of oxygen by nasal cannula.. Cardiac exam reveals the PMI to be normally sized and situated. Rhythm is regular. First and second heart sounds normal. No murmurs, rubs or gallops. Abdominal exam reveals normal bowel sounds, no masses, no organomegaly and no aortic enlargement. Extremities are nonedematous and both femoral and pedal pulses are normal..Examination of the skin revealed no evidence of significant rashes, suspicious appearing nevi or other concerning lesions.Neurologically, the patient is awake and alert and the patient does not have any focal neurological deficit. Cranial nerves are essentially intact. Results - Laboratory Findings CBC and BMP: 11/21/19 08:54 11/21/19 08:54 Abnormal lab findings: Abnormal Labs 11/20/19 11/20/19 11/20/19 13:16 13:16 13:16 RBC 5.72 H Hct 47.7 H Glucose 115 H POC Glucose (mg/dL) Urine Ketones 3+ H Ur Leukocyte Esterase Moderate H Urine Mucus Few H 11/20/19 17:20 RBC Hct Glucose POC Glucose (mg/dL) 163 H Urine Ketones Ur Leukocyte Esterase Urine Mucus - Diagnostic Findings Chest x-ray: image reviewed Assessment and Plan Plan: 1 acute asthma exacerbation with secondary shortness of breath my chest x-ray is free of any acute p. No leukocytosis. No fever. The hernandez virus Covid 19 testing from October 2019 was within normal limits. 2 acute hypoxic respiratory failure, secondary to above 3 history of bronchial asthma, not receiving any outpatient respiratory medications 4 history of THC use Plan Awaiting Covid 19 testing by nasal swab Continue bronchodilators Continue Pulmicort Respules Antibiotic coverage with Zithromax, milligrams by mouth daily IV Solu Medrol 60 mg every 6 hours Monitor the oxygenation We'll continue to follow
--- NOTE | 2019-11-21 13:20 | P.PN ---
Subjective Progress Note Date: 11/21/19 11/21/2019, I'm seeing the patient for a follow-up. Patient is still bronchus spastic and wheezy and she continues to have significant amount of cough and for that reason Robitussin-DM will be added. She still on 2 L of oxygen by nasal cannula. The hernandez virus, 19 testing still pending for now. She remains on 2 L of oxygen by nasal cannula. No significant chest pain. No pleurisy. No hemoptysis. No fever or chills. Objective - Vital Signs Vital signs: Vital Signs Temp 97.3 F L 11/21/19 08:52 Pulse 104 H 11/21/19 11:44 Resp 16 11/21/19 08:52 BP 120/63 11/21/19 08:52 Pulse Ox 94 L 11/21/19 08:54 Intake & Output 11/20/19 11/21/19 11/21/19 18:59 06:59 18:59 Weight 83.915 kg Other: Voiding Method Toilet Toilet # Voids 2 - Exam The patient appeared well nourished and normally developed. Vital signs as documented. Head exam is unremarkable. No scleral icterus or corneal arcus noted. Neck is without jugular venous distension, thyromegaly, or carotid bruits. Carotid upstrokes are brisk bilaterally. Lungs are diminished breath sounds and diffuse expiratory wheezes throughout the lung beck bilaterally. Currently on 2 L of oxygen by nasal cannula.. Cardiac exam reveals the PMI to be normally sized and situated. Rhythm is regular. First and second heart sounds normal. No murmurs, rubs or gallops. Abdominal exam reveals normal bowel sounds, no masses, no organomegaly and no aortic enlargement. Extremities are nonedematous and both femoral and pedal pulses are normal..Examination of the skin revealed no evidence of significant rashes, suspicious appearing nevi or other concerning lesions.Neurologically, the patient is awake and alert and the patient does not have any focal neurological deficit. Cranial nerves are essentially intact. - Labs CBC & Chem 7: 11/21/19 08:54 11/21/19 08:54 Labs: Abnormal Lab Results - Last 24 Hours (Table) 11/20/19 11/20/19 11/20/19 Range/Units 13:16 13:16 13:16 WBC (3.8-10.6) k/uL RBC 5.72 H (3.80-5.40) m/uL Hct 47.7 H (34.0-46.0) % Neutrophils # (1.3-7.7) k/uL Lymphocytes # (1.0-4.8) k/uL Glucose 115 H (74-99) mg/dL POC Glucose (mg/dL) (75-99) mg/dL Urine Ketones 3+ H (Negative) Ur Leukocyte Esterase Moderate H (Negative) Urine Mucus Few H (None) /hpf 11/20/19 11/20/19 11/21/19 Range/Units 17:20 20:57 06:35 WBC (3.8-10.6) k/uL RBC (3.80-5.40) m/uL Hct (34.0-46.0) % Neutrophils # (1.3-7.7) k/uL Lymphocytes # (1.0-4.8) k/uL Glucose (74-99) mg/dL POC Glucose (mg/dL) 163 H 192 H 157 H (75-99) mg/dL Urine Ketones (Negative) Ur Leukocyte Esterase (Negative) Urine Mucus (None) /hpf 11/21/19 11/21/19 11/21/19 Range/Units 08:54 08:54 11:20 WBC 14.0 H (3.8-10.6) k/uL RBC (3.80-5.40) m/uL Hct (34.0-46.0) % Neutrophils # 12.7 H (1.3-7.7) k/uL Lymphocytes # 0.9 L (1.0-4.8) k/uL Glucose 255 H (74-99) mg/dL POC Glucose (mg/dL) 133 H (75-99) mg/dL Urine Ketones (Negative) Ur Leukocyte Esterase (Negative) Urine Mucus (None) /hpf Assessment and Plan Plan: 1 acute asthma exacerbation with secondary shortness of breath my chest x-ray is free of any acute p. No leukocytosis. No fever. The hernandez virus Covid 19 testing from October 2019 was within normal limits. 2 acute hypoxic respiratory failure, secondary to above 3 history of bronchial asthma, not receiving any outpatient respiratory medications 4 history of THC use Plan Limited clinical improvement since yesterday Awaiting Covid testing Continue same treatment with bronchodilators and steroids Smoking cessation counseling was done We'll decide on home medication once the patient is ready for discharge. I think she needs to stay for another 24 hours. Oxygenation and showed only limited improvement.
[2019-11-21 16:44] LABS: Glucose,Whole Blood 149 mg/dL (75-99)
[2019-11-21 16:48] LABS: Urine Alcohol Negative (Negative); Urine Barbiturate Negative (Negative); Urine Cocaine Negative (Negative); Urine Methadone Negative (Negative); Urine Opiates Negative (Negative); Urine Phencyclidine Negative (Negative)
--- NOTE | 2019-11-21 20:48 | PN ---
PROGRESS NOTE DATE OF SERVICE: 11/21/2019 This 34-year-old woman who was admitted with shortness of breath and bronchial asthma, acute exacerbation, is being closely monitored. No chest pain. No palpitations. No fever. PHYSICAL EXAMINATION: Alert and oriented x3. Pulse 84, blood pressure 100/60, respirations 16, temperature 97.2, pulse ox 92% on 2 L. HEENT: Conjunctivae normal. NECK: No jugular venous distention. CARDIOVASCULAR SYSTEM: S1, S2 muffled. RESPIRATORY SYSTEM: Breath sounds diminished at the bases. A few scattered rhonchi and crackles. Expiratory wheezing. ABDOMEN: Soft. NERVOUS SYSTEM: No focal deficit. LABS: WBC 14, hemoglobin 14.4. ASSESSMENT: 1. Acute bronchial asthma, acute exacerbation, with acute purulent tracheobronchitis. 2. Chronic intermittent bronchial asthma at baseline. 3. Increased random blood sugar. 4. History of tetrahydrocannabinol. 5. History of section. 6. FULL CODE. RECOMMENDATIONS AND DISCUSSION: I recommend to continue current medications, continue with the monitoring, symptomatic treatment. Continue with the bronchodilators. Continue with steroids. Otherwise, closely follow with Dr. Olivo. Guarded prognosis. Further recommendations to follow. MMODL / IJN: [id number] /
[2019-11-21 20:53] LABS: Glucose,Whole Blood 137 mg/dL (75-99)
[2019-11-22] MEDS: HYDROcodone/APAP 5-325MG 1 EACH TAB PO PRN ×3 (00:03→12:13)
[2019-11-22] MEDS: ALPRAZolam 0.25 MG TAB PO PRN ×2 (00:03→06:36)
[2019-11-22] MEDS: methylPREDNISolone SOD SUCCI 125 MG/2 ML VIAL IV SCH ×3 (00:04→12:11)
[2019-11-22 06:37] LABS: Glucose,Whole Blood 152 mg/dL (75-99)
[2019-11-22] MEDS: BUDESONIDE 1 MG/2 ML NEBU INHALATION SCH (07:21)
[2019-11-22] MEDS: IPRATROPIUM-ALBUTEROL 3 ML NEB INHALATION SCH ×2 (07:21→11:04)
[2019-11-22] MEDS: FORMOTEROL FUMARATE 20 MCG/2 ML NEBU INHALATION SCH (07:21)
[2019-11-22] MEDS: AZITHROMYCIN 500 MG TAB PO SCH (07:29)
[2019-11-22] MEDS: PANTOPRAZOLE 40 MG TABLET PO SCH (07:29)
[2019-11-22] MEDS: HEPARIN SODIUM,PORCINE 5,000 UNIT/ML 1 ML VIAL SQ SCH (07:29)
[2019-11-22] MEDS: INSULIN ASPART (NovoLOG) 100 UNIT/ML VIAL SQ SCH ×2 (07:29→12:00)
[2019-11-22 07:35] LABS: Basophils % (A) 0 %; Eosinophils % (A) 0 %; HCT 42.6 % (34.0-46.0); HGB 13.6 gm/dL (11.4-16.0); Lymphocytes # (A) 1.4 k/uL (1.0-4.8); Lymphocytes % (A) 9 %; MCH 27.1 pg (25.0-35.0); MCV 84.9 fL (80.0-100.0); Mean Platelet Volume 7.2; Monocytes # (A) 0.7 k/uL (0-1.0); Monocytes % (A) 4 %; Neutrophils # (A) 13.8 k/uL (1.3-7.7); Neutrophils % (A) 86 %; Platelet Count 306 k/uL (150-450); RBC 5.02 m/uL (3.80-5.40); RDW 13.7 % (11.5-15.5)
[2019-11-22 07:46] LABS: African American GFR (CKD) >90 (>60 ml/min/1.73 sqM); Anion Gap 8 mmol/L; Blood Urea Nitrogen 19 mg/dL (7-17); Calcium 9.7 mg/dL (8.4-10.2); Carbon Dioxide 30 mmol/L (22-30); Chloride 101 mmol/L (98-107); Glucose 143 mg/dL (74-99); Non-African American GFR(CKD) >90 (>60 ml/min/1.73 sqM); Potassium 4.5 mmol/L (3.5-5.1); Sodium 139 mmol/L (137-145)
[2019-11-22 07:51] VITALS: BP 116/73; RESP 16; TEMP 98.6
--- NOTE | 2019-11-22 11:10 | P.PN ---
Subjective Progress Note Date: 11/22/19 11/22/2019, I'm seeing the patient for a follow-up. The patient is feeling better. She is short of breath. The hernandez virus Covid 19 testing came back negative. The patient is afebrile. Oxygenation is improved and the patient is currently on room air oxygen. Less bronchospastic and wheezy compared to yesterday. No chest pain. No fever chills or night sweats. No nausea or vomiting. No other new complaints otherwise for now. Objective - Vital Signs Vital signs: Vital Signs Temp 98.6 F 11/22/19 07:49 Pulse 84 11/22/19 11:04 Resp 16 11/22/19 07:49 BP 116/73 11/22/19 07:49 Pulse Ox 98 11/22/19 07:49 Intake & Output 11/21/19 11/22/19 11/22/19 18:59 06:59 18:59 Other: Voiding Method Toilet # Voids 3 1 # Bowel Movements 1 - Exam The patient appeared well nourished and normally developed. Vital signs as documented. Head exam is unremarkable. No scleral icterus or corneal arcus noted. Neck is without jugular venous distension, thyromegaly, or carotid bruits. Carotid upstrokes are brisk bilaterally. Lungs are diminished breath sounds and diffuse expiratory wheezes throughout the lung beck bilaterally. Currently on 2 L of oxygen by nasal cannula.. Cardiac exam reveals the PMI to be normally sized and situated. Rhythm is regular. First and second heart sounds normal. No murmurs, rubs or gallops. Abdominal exam reveals normal bowel sounds, no masses, no organomegaly and no aortic enlargement. Extremities are nonedematous and both femoral and pedal pulses are normal..Examination of the skin revealed no evidence of significant rashes, suspicious appearing nevi or other concerning lesions.Neurologically, the patient is awake and alert and the patient does not have any focal neurological deficit. Cranial nerves are essent ially intact. - Labs CBC & Chem 7: 11/22/19 07:08 11/22/19 07:08 Labs: Abnormal Lab Results - Last 24 Hours (Table) 11/20/19 11/21/19 11/21/19 Range/Units 13:16 11:20 16:42 WBC (3.8-10.6) k/uL Neutrophils # (1.3-7.7) k/uL BUN (7-17) mg/dL Glucose (74-99) mg/dL POC Glucose (mg/dL) 133 H 149 H (75-99) mg/dL U Cannabinoids Screen Positive H (Negative) ng/mL 11/21/19 11/22/19 11/22/19 Range/Units 20:51 06:36 07:08 WBC 16.0 H (3.8-10.6) k/uL Neutrophils # 13.8 H (1.3-7.7) k/uL BUN (7-17) mg/dL Glucose (74-99) mg/dL POC Glucose (mg/dL) 137 H 152 H (75-99) mg/dL U Cannabinoids Screen (Negative) ng/mL 11/22/19 Range/Units 07:08 WBC (3.8-10.6) k/uL Neutrophils # (1.3-7.7) k/uL BUN 19 H (7-17) mg/dL Glucose 143 H (74-99) mg/dL POC Glucose (mg/dL) (75-99) mg/dL U Cannabinoids Screen (Negative) ng/mL Microbiology - Last 24 Hours (Table) 11/20/19 13:16 Blood Culture - Preliminary Blood No Growth after 24 hours Assessment and Plan Plan: 1 acute asthma exacerbation with secondary shortness of breath my chest x-ray is free of any acute pulmonary infiltrates/pneumonia.. No leukocytosis. No fever. The hernandez virus Covid 19 testing from October 2019 was within normal limits and the repeat testing during this current admission came back negative. 2 acute hypoxic respiratory failure, secondary to above, Improving 3 history of bronchial asthma, not receiving any outpatient respiratory medicati ons 4 history of THC use Plan Negative Covid 19 testing Continue same treatment with bronchodilators and steroids The patient can be discharged home on a maintenance of Dulera 200/52 puffs twice a day and a metal rescue inhaler on as-needed basis. She'll be also completing a prednisone burst taper starting with 40 mg to be tapered by 10 g every 4 days. The patient needs to be seen in the office for follow-up. Smoking cessation counseling was done Clear for discharge from the pulmonary standpoint
[2019-11-22 11:15] VITALS: PULSE 88
--- NOTE | 2019-11-22 13:52 | P.DS ---
Providers Date of admission: 11/22/19 09:39 Attending physician: Amanda Mcdowell Consults: 11/20/19 16:01 Consult Physician Routine Consulting Provider: Frankie Burrows Reason/Comments: ASTHMA Do you want consulting provider notified?: Yes Primary care physician: Stated None Hospital Course: Diagnoses: Acute asthma exacerbation Acute hypoxic respiratory failure secondary to above resolve Chronic bronchial asthma History of THC use Hospital course: This is a pleasant 34 years old female who presents with dyspnea, patient found to have asthma, patient evaluated by brake repairer bus she was treated with Zithromax and Solu-Medrol and bronchodilators and oxygen as needed. Patient showed interval improvement and she is back to her baseline and she is on room air now. Patient was cleared for discharge by brake repairer bus service, discharge medication is ordered a provided by pulmonary service including inhalers 2 and taper steroids. Problems and management plan were discussed with the patient and he verbalized understanding and acceptance Patient was found stable and can be discharged home however he needs follow-up as an outpatient. Patient was instructed to follow up with PCP Dr. Amaya within one week and patient agrees. Patient also was instructed to follow up with her brake repairer bus Dr. Burrows/kunal and in 1-2 weeks and she agrees Gen: patient is a AAOx3, no distress CVS: S1-S2, RRR, no murmur Lungs: B/L CTA, no wheezing Abdomen: soft, no distention, no tenderness, positive bowel sounds Extremity: no leg edema or induration Time spent more than 35 minutes Patient Condition at Discharge: Stable Plan - Discharge Summary Discharge Rx Participant: Yes New Discharge Prescriptions: New Mometasone/Formoterol [Dulera 200 Mcg-5 Mcg Inhaler] 1 puff PO BID 30 Days #1 inhaler Albuterol Inhaler [Ventolin Hfa Inhaler] 1 puff INHALATION RT-QID PRN 30 Days #1 puff PRN Reason: Dyspnea predniSONE 10 mg PO DAILY 16 Days #40 tab Formoterol Fumarate [Perforomist] 20 mcg INHALATION RT-BID nebu Pantoprazole [Protonix] 40 mg PO AC-BRKFST #20 tablet. Discharge Medication List Albuterol Inhaler [Ventolin Hfa Inhaler] 1 puff INHALATION RT-QID PRN 30 Days #1 puff 11/22/19 [Rx] Formoterol Fumarate [Perforomist] 20 mcg INHALATION RT-BID nebu 11/22/19 [Rx] Mometasone/Formoterol [Dulera 200 Mcg-5 Mcg Inhaler] 1 puff PO BID 30 Days #1 inhaler 11/22/19 [Rx] Pantoprazole [Protonix] 40 mg PO AC-BRKFST #20 tablet. 11/22/19 [Rx] predniSONE 10 mg PO DAILY 16 Days #40 tab 11/22/19 [Rx] Follow up Appointment(s)/Referral(s): Raul Travis MD [STAFF PHYSICIAN] - 1 Week Alan Schneider MD [REFERRING] - 1 Week Frankie Burrows DO [Doctor of Osteopathic Medicine] - 11/25/19 2:30 pm [facility] [NON-STAFF] - 1 Week Activity/Diet/Wound Care/Special Instructions: Off work until seen and cleared from brake repairer bus on November 24. Discharge Disposition: HOME SELF-CARE
== END 2019-11-22 14:12 | disposition home or self-care (01) ==
LOC: EC 12:22 → 1SOBS 14:49 → UNDOADMIN 14:49 → OBSVTOIN 11-22 09:39 → INTOOBSV 11-22 09:39 → UNDODISIN 11-22 14:12
PROVIDERS: ADMIT Hospitalist; ATTEND Hospitalist
DX: J45.901 Unspecified asthma with (acute) exacerbation (principal); J96.01 Acute respiratory failure with hypoxia; R73.9 Hyperglycemia, unspecified; M79.7 Fibromyalgia; F41.9 Anxiety disorder, unspecified; F32.9 Major depressive disorder, single episode, unspecified; F17.200 Nicotine dependence, unspecified, uncomplicated; Z20.828 Contact with and (suspected) exposure to other viral communicable diseases; Z98.890 Other specified postprocedural states; Z71.6 Tobacco abuse counseling; Z82.49 Family history of ischemic heart disease and other diseases of the circulatory system; Z83.79 Family history of other diseases of the digestive system; Z81.8 Family history of other mental and behavioral disorders; Z83.3 Family history of diabetes mellitus
CPT/HCPCS: 96366; 96372 ×3; 96376 ×3; 96365; 96375; 99284; 36415; 94640 ×6; 93005; 80053; 80048 ×2; 83605; 85025 ×3; 81001; 81025; 87040; 80306; 71046; G0378 ×3; U0003; J1644 ×3; J2930 ×3; J3475; 99285

== ENCOUNTER 2022-10-24 05:59 | Inpatient (IN) | payer OTHER ==
--- NOTE | 2022-10-23 07:22 | P.HPOB ---
History of Present Illness H&P Date: 10/23/22 Chief Complaint: Repeat section, intrauterine growth restriction This patient is a 37-year-old 6 para 4 female estimated date of confinement 11/08/2022 estimated gestational age 38 weeks who presents to labor and delivery for elective repeat section secondary to previous section also patient has been diagnosed with intrauterine growth restriction. Patient's history is that she was late to see me for care. Her first visit was at approximately 22 weeks. Patient is advanced for maternal age. She did have a normal genetic testing with [facility]. Patient was having serial growth ultrasounds due to her age and ultrasound showed elevated Dopplers in my office. Patient was referred to maternal- medicine and her umbilical artery Dopplers were normal however was diagnosed with intrauterine growth restriction. Patient's follow close with maternal- medicine and they recommended delivery at this time. Also of note the patient told me approximately one day ago that she started on methadone. She did not previously tell me that she had any drug or opioid problem. 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 She feels that this started initially with medication she was given for back problems. She indicated to me that no particular physician is prescribing for her at this time but throughout the she's been using them on and off that she's purchased elsewhere. Patient went to a methadone clinic recently and they started her on methadone approximately 2 days ago. Patient is also been smoking about a half pack cigarettes a day. Review of Systems Genitourinary: Reports Menstruation: Reports amenorrhea Past Medical History Past Medical History: Asthma, Fibromyalgia Additional Past Medical History / Comment(s): broncitis History of Any Multi-Drug Resistant Organisms: None Reported Past Surgical History: Section Past Anesthesia/Blood Transfusion Reactions: No Reported Reaction Past Psychological History: Anxiety, Depression Smoking Status: Current every day smoker Past Alcohol Use History: None Reported Past Drug Use History: Marijuana, Opiates Additional Drug Use History / Comment(s): Recently started on methadone - Past Family History Mother Family Medical History: Hypertension Additional Family Medical History / Comment(s): colitis Father Additional Family Medical History / Comment(s): anxiety and depression Sister(s) Family Medical History: Diabetes Mellitus, Myocardial Infarction ([place]) Medications and Allergies Home Medications Medication Instructions Recorded Confirmed Type Albuterol Inhaler [Ventolin Hfa 1 puff INHALATION RT-QID PRN 30 11/22/19 Rx Inhaler] Days #1 puff Formoterol Fumarate [Perforomist] 20 mcg INHALATION RT-BID nebu 11/22/19 Rx Mometasone/Formoterol [Dulera 200 1 puff PO BID 30 Days #1 inhaler 11/22/19 Rx Mcg-5 Mcg Inhaler] Pantoprazole [Protonix] 40 mg PO AC-BRKFST #20 tablet.dr 11/22/19 Rx predniSONE 10 mg PO DAILY 16 Days #40 tab 11/22/19 Rx Allergies Allergy/AdvReac Type Severity Reaction Status Date / Time No Known Allergies Allergy Verified 11/20/19 13:39 Exam - OBG Physical Exam Abdomen: bowel sounds normal, no diffuse tenderness, no bruit present, no guarding noted, no hepatomegaly, no splenomegaly, no mass Vulva: both: normal Vagina: normal moisture, no discharge Cervix: no lesion, no discharge Uterus: enlarged Results labs show she is A positive, rubella immune, RPR nonreactive, hepatitis B and C are negative, HIV is negative, Glucola was normal, group B strep was negative, ultrasounds as above. Assessment and Plan Assessment: This is a 37-year-old 6 para 4 female 38 weeks gestation with previous section desires repeat. Patient most recently also told me she that she does have an opioid problem and most recently was started on methadone. Patient's also been seen by maternal medicine and has intrauterine growth restriction and that is why they're recommending delivery at this time. Plan is repeat low transverse section. Patient understands the surgery and risks and risks of infection, bleeding, possible injury bowel, bladder, vessels, and/or other organs. She understands the risk of DVT and pulmonary embolism. Patient also understands that since she has been using opioids throughout the episodically, and most recently has started methadone, baby will be watched in special care nursery for an indeterminate amount of time. All the patient's questions are answered and a written consent is obtained. (1) 38 weeks gestation of Status: Acute Code(s): Z3A.38 - 38 WEEKS GESTATION OF SNOMED Code(s): 11198644 (2) Previous delivery affecting Status: Acute Code(s): O34.219 - MATERNAL CARE FOR UNSP TYPE SCAR FROM PREVIOUS DEL SNOMED Code(s): 392923688 (3) Elderly multigravida Status: Acute Code(s): O09.529 - SUPERVISION OF ELDERLY MULTIGRAVIDA, UNSPECIFIED TRIMESTER SNOMED Code(s): 203829343 (4) Intrauterine growth restriction (IUGR) affecting care of mother Status: Acute Code(s): O36.5990 - MATERN CARE FOR OTH OR SUSP POOR FETL GRTH, UNSP TRI, UNSP SNOMED Code(s): 636897624 (5) Opiate addiction Status: Acute Code(s): F11.20 - OPIOID DEPENDENCE, UNCOMPLICATED SNOMED Code(s): 73564437
[2022-10-24] MEDS ORDERED: CARBOPROST TROMETHAMINE 250 MCG/ML 1 ML AMP IM PRN (06:13)
[2022-10-24] MEDS ORDERED: LACTATED RINGERS 1,000 ML IV ONE (06:13)
[2022-10-24] MEDS ORDERED: LACTATED RINGERS 1,000 ML IV SCH (06:13)
[2022-10-24] MEDS ORDERED: OXYTOCIN 10 UNIT/ML 1 ML VIAL IM PRN (06:13)
[2022-10-24] MEDS ORDERED: TRANEXAMIC 1,000 MG/100ML-NACL 1,000 MG in EMPTY BAG 1 BAG IV PRN (06:13)
[2022-10-24] MEDS ORDERED: METHYLERGONOVINE 0.2 MG/ML 1 ML AMP IM PRN (06:13)
[2022-10-24] MEDS ORDERED: miSOPROStoL 200 MCG TAB PO PRN (06:13)
[2022-10-24] MEDS ORDERED: CITRIC ACID-SODIUM CITRATE 15 ML CUP PO ONE (06:13)
[2022-10-24 07:39] LABS: Basophils % (A) 0 %; Eosinophils # (A) 0.2 k/uL (0-0.7); Eosinophils % (A) 3 %; HCT 38.6 % (34.0-46.0); HGB 13.3 gm/dL (11.4-16.0); Lymphocytes # (A) 2.2 k/uL (1.0-4.8); Lymphocytes % (A) 28 %; MCH 30.3 pg (25.0-35.0); MCHC 34.5 g/dL (31.0-37.0); MCV 87.6 fL (80.0-100.0); Mean Platelet Volume 8.9; Monocytes # (A) 0.6 k/uL (0-1.0); Monocytes % (A) 8 %; Neutrophils # (A) 4.6 k/uL (1.3-7.7); Neutrophils % (A) 58 %; Platelet Count 180 k/uL (150-450); RDW 13.4 % (11.5-15.5); WBC 7.9 k/uL (3.8-10.6)
[2022-10-24 07:51] LABS: Amphetamine Screen,Urine Not Detected (NotDetected); Barbiturate Screen,Urine Not Detected (NotDetected); Benzodiazepines Screen,Urine Not Detected (NotDetected); Cocaine Screen,Urine Not Detected (NotDetected); Methadone Screen, Urine Detected (NotDetected); Opiate Screen,Urine Detected (NotDetected); Oxycodone Screen, Urine Not Detected (NotDetected); Phencyclidine Screen,Urine Not Detected (NotDetected); Tricyclic Antidepressant,Urine Not Detected (NotDetected); Urn Cannabinoid Scrn Not Detected (NotDetected)
[2022-10-24] MEDS ORDERED: KETOROLAC 15 MG/ML 1 ML VIAL ONE (07:51)
[2022-10-24] MEDS ORDERED: OXYTOCIN 30 UNITS/500 ML NS BAG IV ONE (07:51)
[2022-10-24] MEDS ORDERED: MIDAZOLAM 2 MG/2 ML VIAL ONE (07:51)
[2022-10-24] MEDS ORDERED: OXYTOCIN 30 UNITS/500 ML NS 30 UNIT in SALINE 1 500ML.BAG IV SCH (08:46)
[2022-10-24] MEDS ORDERED: diphenhydrAMINE 25 MG CAP PO PRN (08:46)
[2022-10-24] MEDS ORDERED: LANOLIN CREAM 5 GM TUBE TOPICAL PRN (08:46)
[2022-10-24] MEDS ORDERED: METOCLOPRAMIDE 5 MG/ML 2 ML VIAL IVP PRN (08:46)
[2022-10-24] MEDS ORDERED: NALOXONE 0.4 MG/ML 1 ML VIAL IV PRN (08:46)
[2022-10-24] MEDS ORDERED: ZOLPIDEM 5 MG TAB PO PRN (08:46)
[2022-10-24] MEDS ORDERED: ONDANSETRON 4 MG/2 ML VIAL IVP PRN (08:46)
[2022-10-24] MEDS ORDERED: SIMETHICONE 80 MG CHEWABLE PO PRN (08:46)
[2022-10-24] MEDS ORDERED: diphenhydrAMINE 50 MG/ML 1 ML VIAL IVP PRN (08:46)
--- NOTE | 2022-10-24 08:49 | P.OP ---
Date of Procedure: 10/24/22 Preoperative Diagnosis: #1: 38 weeks intrauterine . #2: Previous section. #3: Intrauterine growth restriction #4: Substance abuse #5: Advanced for maternal age Postoperative Diagnosis: Same Procedure(s) Performed: Repeat low transverse section Anesthesia: spinal Surgeon: Missael Noriega Membership Assistant #1: Pricilla Alan Estimated Blood Loss (ml): 800 Pathology: other (Placenta) Condition: stable Disposition: floor Indications for Procedure: Please see dictated H&P for intimate details of this patient's admission. Brief summary this is a pleasant 37-year-old 6 para 4 female 38 weeks gestation admitted for elective repeat section secondary to intrauterine growth restriction and previous section. Patient also was most recently for mt if her methadone/opioid use as well. Patient understands this surgery and risks and risks of infection, bleeding, possible injury bowel, bladder, vessels, and/or other organs. All the patient's questions are answered written consent is obtained. Operative Findings: This is a vigorous viable female Apgars 8 and 9 delivery time is 0808 hrs. Description of Procedure: This patient has a De Leon catheter placed to straight drain. She subsequently taken to the operating room where she is sat up and spinal anesthetic is administered without incident. Abdominal prep and drape. After the appropriate timeout, scalpels taken the previous Pfannenstiel incision is incised. A second scalpel is taken down the fascia the fascia scored with a knife. Fascial incision extended bilaterally using August scissors. Fascia dissected sharply off the rectus muscles. Rectus muscles are the peritoneum identified and entered sharply. Peritoneal incision extended superior and inferior without difficulty. Bladder blade is then placed. Bladder peritoneum was taken sharply off the lower uterine segment. Scalpels and taken low transverse uterine incision is then made. Using a hemostat I enter the uterine cavity bluntly and there is loss of clear fluid. This incision is extended bluntly. 's head is then guided through the incision with fundal pressure. Mouth and nares are bulb suctioned. There is a nuchal cord 1 which is reduced. With more fundal pressure we then delivery anterior posterior shoulder and rest this infant's body. Is a vigorous viable female Apgars 8 and 9 delivery time is 0808 hrs. After delivery of the the umbilical cord is doubly clamped and cut appears to be trivascular. The placenta is then manually extracted intact. Uterus is then externalized and uterine incision demarcated with Rob clamps. Closed using 0 Vicryl running locked fashion 2 layers. ASIS is noted. Excess fluid is removed from the pelvis. Uterus placed back in the abdomen. The parietal peritoneum was then closed using 0 Vicryl running fashion. Rectus muscles reapproximated in 0 Vicryl interrupted fashion. Fascia is then closed using 0 PDS. Fascial incision is intact and hemostatic. Subcutaneous tissues and closed using 3-0 Vicryl. Skin is and closed using rupinder. All counts are correct 3. There are no complications. and mother are taken to the delivery room. will be transferred to special care secondary to methadone use.
[2022-10-24 09:09] VITALS: RESP 16
[2022-10-24] MEDS: LACTATED RINGERS 1,000 ML IV SCH ×2 (11:44→19:43)
[2022-10-24] MEDS: ACETAMINOPHEN TAB 500 MG TAB PO SCH ×3 (13:50→21:40)
[2022-10-24] MEDS: KETOROLAC 15 MG/ML 1 ML VIAL IVP SCH ×2 (15:09→21:16)
[2022-10-24] MEDS: SENNOSIDES-DOCUSATE SODIUM 1 EACH TAB PO SCH ×2 (19:41→21:14)
[2022-10-24] MEDS: IBUPROFEN 600 MG TAB PO SCH ×2 (19:41→21:12)
[2022-10-25] MEDS: IBUPROFEN 600 MG TAB PO SCH ×4 (01:15→19:49)
[2022-10-25] MEDS: LACTATED RINGERS 1,000 ML IV SCH (01:16)
[2022-10-25] MEDS: ACETAMINOPHEN TAB 500 MG TAB PO SCH (04:01)
[2022-10-25] MEDS: KETOROLAC 15 MG/ML 1 ML VIAL IVP SCH (04:07)
--- NOTE | 2022-10-25 06:50 | P.PNOBGPC ---
Subjective - Subjective Patient reports: Reports appetite normal, Reports voiding normally, Reports pain well controlled, Reports ambulating normally : doing well, in NICU (Secondary to methadone use) Objective - Vital Signs Latest vital signs: Vital Signs Temp Pulse Resp BP Pulse Ox 10/25/22 04:00 98.3 F 68 16 132/85 96 10/25/22 00:00 70 16 133/85 96 10/24/22 20:00 98.1 F 84 16 130/77 98 10/24/22 16:00 98.2 F 88 16 135/84 98 10/24/22 13:00 98.6 F 79 16 146/81 98 10/24/22 10:47 84 16 156/85 98 10/24/22 10:25 80 16 135/88 98 10/24/22 09:40 59 L 16 148/73 98 10/24/22 09:25 97.0 F L 61 16 156/72 98 10/24/22 09:05 51 L 16 122/76 10/24/22 08:50 54 L 16 117/76 98 10/24/22 08:35 97.0 F L 74 16 120/79 Intake and Output 10/24/22 10/24/22 10/25/22 14:59 22:59 06:59 Output Total 907 1550 Balance -907 -1550 Output: Urine 300 1550 Uretheral (De Leon) 600 Output, Quantitative 607 Blood Loss Other: # Voids 1 1 - Exam Lungs: bilateral: normal Chest: Normal S1, Normal S2 Extremities: Present: normal Abdomen: Present: normal appearance, soft. Absent: distention, tenderness Incision: Present: normal, dry, intact Uterus: Present: normal, firm - Labs Labs: Abnormal Lab Results - Last 24 Hours (Table) 10/24/22 Range/Units 07:30 Urine Opiates Screen Detected H (NotDetected) Urine Methadone Screen Detected H (NotDetected) Assessment and Plan Assessment: Postoperative day #1. Patient is resting without new complaints. Vital signs are stable she is afebrile. Uterus is firm nontender she is having normal lochia. Incision is intact and dry. CBC is pending at time of this dictation. My impression this is a normal postoperative course. Plan is to continue routine postoperative care, check CBC, encourage ambulation, allow the patient to shower. (1) 38 weeks gestation of Current Visit: No Status: Acute Code(s): Z3A.38 - 38 WEEKS GESTATION OF SNOMED Code(s): 60291917 (2) Previous delivery affecting Current Visit: No Status: Acute Code(s): O34.219 - MATERNAL CARE FOR UNSP TYPE SCAR FROM PREVIOUS DEL SNOMED Code(s): 483878131 (3) Elderly multigravida Current Visit: No Status: Acute Code(s): O09.529 - SUPERVISION OF ELDERLY MULTIGRAVIDA, UNSPECIFIED TRIMESTER SNOMED Code(s): 392738056 (4) Intrauterine growth restriction (IUGR) affecting care of mother Current Visit: No Status: Acute Code(s): O36.5990 - MATERN CARE FOR OTH OR SUSP POOR FETL GRTH, UNSP TRI, UNSP SNOMED Code(s): 673529243 (5) Opiate addiction Current Visit: No Status: Acute Code(s): F11.20 - OPIOID DEPENDENCE, UNCOMPLICATED SNOMED Code(s): 85968811
[2022-10-25 06:53] LABS: Basophils % (A) 0 %; Eosinophils # (A) 0.1 k/uL (0-0.7); Eosinophils % (A) 1 %; HCT 33.1 % (34.0-46.0); HGB 10.8 gm/dL (11.4-16.0); Lymphocytes # (A) 1.5 k/uL (1.0-4.8); Lymphocytes % (A) 19 %; MCH 28.8 pg (25.0-35.0); MCHC 32.5 g/dL (31.0-37.0); MCV 88.6 fL (80.0-100.0); Mean Platelet Volume 8.2; Monocytes # (A) 0.5 k/uL (0-1.0); Monocytes % (A) 6 %; Neutrophils # (A) 5.9 k/uL (1.3-7.7); Neutrophils % (A) 72 %; Platelet Count 186 k/uL (150-450); RBC 3.74 m/uL (3.80-5.40); RDW 13.1 % (11.5-15.5); WBC 8.2 k/uL (3.8-10.6)
[2022-10-25] MEDS: SENNOSIDES-DOCUSATE SODIUM 1 EACH TAB PO SCH (13:47)
--- NOTE | 2022-10-25 14:35 | P.PN ---
Progress Note - Text Progress Note Date: 10/25/22 (2517) Anesthesia Postop day 1 Subjective: Status Post section with Duramorph. Patient seen and examined. Doing well without complaint. Comfortable overnight. No nausea or vomiting. Mild pruritus tolerable.. Afebrile. Gross lower extremity strength intact. Without apparent anesthetic complications. Objective: Vital signs reviewed Heart: Regular Rate Lungs: Good chest excursion Abdomen: Appears nondistended Assessment: Status post with Duramorph postop day 1 Plan: Continue current care with your medical management. Anticipated and the Duramorph section around time today. You may see increased pain needs around this time.
[2022-10-26] MEDS: ACETAMINOPHEN TAB 500 MG TAB PO SCH (00:09)
[2022-10-26] MEDS: IBUPROFEN 600 MG TAB PO SCH ×2 (05:11→10:33)
--- NOTE | 2022-10-26 07:07 | P.PNOBGPC ---
Subjective - Subjective Patient reports: Reports appetite normal, Reports voiding normally, Reports pain well controlled, Reports ambulating normally : doing well, in NICU Objective - Vital Signs Latest vital signs: Vital Signs Temp Pulse Resp BP Pulse Ox 10/26/22 04:00 97.8 F 72 16 144/94 10/25/22 19:52 98.0 F 71 16 146/83 10/25/22 16:00 98.5 F 72 16 115/64 10/25/22 08:00 98.5 F 85 16 131/88 98 Intake and Output 10/25/22 10/26/22 10/26/22 22:59 06:59 14:59 Other: # Voids 1 3 - Exam Lungs: bilateral: normal Chest: Normal S1, Normal S2 Extremities: Present: normal Abdomen: Present: normal appearance, soft. Absent: distention, tenderness Incision: Present: normal, dry, intact Uterus: Present: normal, firm Assessment and Plan Assessment: Postoperative day #2. Patient is resting without complaints and wishes to go home. Vital signs are stable and she is afebrile. She is some mild blood pressure elevations but these do not require treatment and she is asymptomatic. Incision is intact and dry. Patient's family urinating without difficulty. Patient's felt be stable for discharge home follow up with me in 1 week. (1) 38 weeks gestation of Current Visit: No Status: Acute Code(s): Z3A.38 - 38 WEEKS GESTATION OF P DEACON SNOMED Code(s): 18287884 (2) Previous delivery affecting Current Visit: No Status: Acute Code(s): O34.219 - MATERNAL CARE FOR UNSP TYPE SCAR FROM PREVIOUS DEL SNOMED Code(s): 697536430 (3) Elderly multigravida Current Visit: No Status: Acute Code(s): O09.529 - SUPERVISION OF ELDERLY MULTIGRAVIDA, UNSPECIFIED TRIMESTER SNOMED Code(s): 313824672 (4) Intrauterine growth restriction (IUGR) affecting care of mother Current Visit: No Status: Acute Code(s): O36.5990 - MATERN CARE FOR OTH OR SUSP POOR FETL GRTH, UNSP TRI, UNSP SNOMED Code(s): 315346150 (5) Opiate addiction Current Visit: No Status: Acute Code(s): F11.20 - OPIOID DEPENDENCE, UNCOMPLICATED SNOMED Code(s): 02998912
--- NOTE | 2022-10-26 07:13 | P.DS ---
Providers Date of admission: 10/24/22 05:59 Expected date of discharge: 10/26/22 Attending physician: Missael Noriega Primary care physician: Stated None - Discharge Diagnosis(es) (1) 38 weeks gestation of Current Visit: No Status: Acute (2) Previous delivery affecting Current Visit: No Status: Acute (3) Elderly multigravida Current Visit: No Status: Acute (4) Intrauterine growth restriction (IUGR) affecting care of mother Current Visit: No Status: Acute (5) Opiate addiction Current Visit: No Status: Acute Hospital Course: Please see dictated H&P for intimate details of this patient's admission. In brief summary this is a 37-year-old 6 para 4 female 38 weeks gestation admitted to labor and delivery for repeat section secondary to intrauterine growth restriction, previous section, and opioid drug abuse. Patient undergoes a repeat section for viable female . The see dictated operative note. Postoperative day #2 patient's felt to be stable for discharge home follow up with me in 1 week. Procedures: Repeat low transverse section. Patient Condition at Discharge: Good Plan - Discharge Summary New Discharge Prescriptions: New oxyCODONE HCL [OxyIR] 5 mg PO Q6HR PRN #18 tab PRN Reason: Pain Ibuprofen [Motrin] 600 mg PO Q6H #40 tab No Action Vit No.179/Iron/Folic [ Tablet] 1 tab PO DAILY Methadone [Dolophine] 40 mg PO DAILY Discharge Medication List Methadone [Dolophine] 40 mg PO DAILY 10/24/22 [History] Vit No.179/Iron/Folic [ Tablet] 1 tab PO DAILY 10/24/22 [History] Ibuprofen [Motrin] 600 mg PO Q6H #40 tab 10/25/22 [Rx] oxyCODONE HCL [OxyIR] 5 mg PO Q6HR PRN #18 tab 10/25/22 [Rx] Follow up Appointment(s)/Referral(s): Missael Noriega MD [STAFF PHYSICIAN] - 12/02/22 11:15 am (Post Op Appointment 11-03-2022 at 1:30 p.m.) Patient Instructions/Handouts: (DC) Activity/Diet/Wound Care/Special Instructions: No strenuous activity or heavy lifting for 6 weeks. No intercourse or anything per vagina for 6 weeks. Please call if any fever, chills, excessive vaginal bleeding, and/or abdominal pain. Discharge Disposition: HOME SELF-CARE
[2022-10-26 08:28] VITALS: TEMP 98.5
[2022-10-26 16:29] VITALS: BP 126/82; PULSE 82
[2022-10-26] MEDS: SENNOSIDES-DOCUSATE SODIUM 1 EACH TAB PO SCH (16:43)
== END 2022-10-26 16:45 | disposition home or self-care (01) | DRG 540 ==
LOC: 4FBP 05:59
PROVIDERS: ADMIT Obstetrics & Gynecology; ATTEND Obstetrics & Gynecology
PROC: 10D00Z1 Extraction of Products of Conception, Low, Open Approach (ICD-10-PCS; principal; 2022-10-24 08:00)
DX: O34.211 Maternal care for low transverse scar from previous cesarean delivery (principal); O36.5930 Maternal care for other known or suspected poor fetal growth, third trimester, not applicable or unspecified; F11.20 Opioid dependence, uncomplicated; F17.210 Nicotine dependence, cigarettes, uncomplicated; F32.A Depression, unspecified; F41.9 Anxiety disorder, unspecified; J45.909 Unspecified asthma, uncomplicated; L29.9 Pruritus, unspecified; M79.7 Fibromyalgia; O99.324 Drug use complicating childbirth; O99.334 Smoking (tobacco) complicating childbirth; O99.344 Other mental disorders complicating childbirth; O99.52 Diseases of the respiratory system complicating childbirth; Z37.0 Single live birth; Z3A.38 38 weeks gestation of pregnancy; Z79.51 Long term (current) use of inhaled steroids; Z79.899 Other long term (current) drug therapy
CPT/HCPCS: 80306; 85025; 86850; 86900; 86901